=== PATIENT | female | born 1980 | race African-American/Black ===

== ENCOUNTER 2018-10-09 00:34 | Emergency (ER) | payer MEDICAID, SELFPAY ==
[2018-10-09] MEDS ORDERED: Mag-Al Plus 1200 MG/1200 MG/120 MG/30 ML UDCUP ONE (01:03)
[2018-10-09] MEDS ORDERED: Lidocaine Viscous Sol 2% 15 ml UD Cup ONE (01:03)
== END 2018-10-09 01:35 | disposition home or self-care (01) ==
LOC: NAV ERS 00:34
DX: R10.13 Epigastric pain (principal); F17.210 Nicotine dependence, cigarettes, uncomplicated; I10 Essential (primary) hypertension
CPT/HCPCS: 99283